=== PATIENT | male | born 1995 | race African-American/Black ===

== ENCOUNTER 2020-05-24 15:48 | Emergency (ER) | payer SELFPAY ==
--- NOTE | 2020-05-24 17:39 | ER ---
Nurse's Notes [facility] Name: Eitan Canela Age: 24 yrs Sex: Male : 1995 Arrival Date: 05/24/2020 Time: 15:50 Bed 7 Private MD: Diagnosis: Aspiration of Foreign Body - resolved Presentation: 05/24 15:50 Chief complaint: Patient states: Pt reports he was laughing while watching TV ss approximately 20 minutes ago when suddenly he felt as if something was stuck in his throat. Denies fever, cough or SOB. Coronavirus screen: Client denies travel out of the [place] in the last 14 days. Ebola Screen: Patient denies exposure to infectious person. Patient denies travel to an Ebola-affected area in the 21 days before illness onset. Initial Sepsis Screen: Does the patient meet any 2 criteria? No. Patient's initial sepsis screen is negative. Does the patient have a suspected source of infection? No. Patient's initial sepsis screen is negative. Risk Assessment: Do you want to hurt yourself or someone else? Patient reports no desire to harm self or others. Onset of symptoms was May 24, 2020. 15:50 Method Of Arrival: EMS: [facility] ss 15:50 Acuity: [place] 3 ss Historical: - Allergies: 15:53 No Known Allergies; ss - Home Meds: 15:53 None [Active]; ss - PMHx: 15:53 None; ss - PSHx: 15:53 None; ss - Immunization history:: Adult Immunizations up to date. - Social history:: Smoking status: Patient denies any tobacco usage or history of. Screenin:51 Nutritional screening: No deficits noted. ss 15:53 Abuse screen: Denies threats or abuse. Denies injuries from another. Tuberculosis ss screening: Never had TB. Fall Risk None identified. Assessment: 15:51 General: Appears in no apparent distress. comfortable, Behavior is calm, cooperative, ss Denies fever, feeling ill, fatigue, chills. Pain: Denies pain. Neuro: Level of Consciousness is awake, alert, obeys commands, Oriented to person, place, time, situation. Cardiovascular: Capillary refill < 3 seconds is brisk in bilateral fingers. Respiratory: Airway is patent Respiratory effort is even, unlabored, Respiratory pattern is regular, symmetrical, Breath sounds are clear bilaterally. Denies cough, shortness of breath labored breathing, pain with respiration, pain with cough, pain with movement. GI: Patient currently denies abdominal pain, diarrhea, nausea, vomiting. : No signs and/or symptoms were reported regarding the genitourinary system. EENT: Throat is clear slightly reddened throat. EENT: Reports sensation that something may be lodge in throat. . Derm: Skin is intact, is healthy with good turgor, Skin is dry, Skin is pink, warm \T\ dry. normal. Musculoskeletal: Circulation, motion, and sensation intact. Range of motion: intact in all extremities, Swelling absent. 17:46 Reassessment: Patient appears in no apparent distress at this time. Patient and/or ss family updated on plan of care and expected duration. Pain level reassessed. Patient is alert, oriented x 3, equal unlabored respirations, skin warm/dry/pink. Patient denies pain at this time. Patient states feeling better. Patient states symptoms have improved. Vital Signs: 15:50 BP 131 / 76; Pulse 94; Resp 15; Temp 99.1(TE); Pulse Ox 99% on R/A; Weight 70.31 kg; Height 5 ft. 11 in. (180.34 cm); Pain 0/10; 15:50 Body Mass Index 21.62 (70.31 kg, 180.34 cm) ED Course: 15:50 Patient arrived in ED. 15:52 Triage completed. 15:53 Danni Manzo, RN is Primary Nurse. 15:53 Arm band placed on right wrist. 15:53 Patient has correct armband on for positive identification. Bed in low position. Call light in reach. 16:12 Jatin Alcantara MD is Attending Physician. kdr 17:12 CXR XRAY In Process Unspecified. EDMS 17:12 Neck Soft Tissue XRAY In Process Unspecified. EDMS 17:46 Assist provider with bone marrow aspiration. Patient did not have IV access during this emergency room visit. Administered Medications: No medications were administered Outcome: 17:39 Discharge ordered by . kdr 17:46 Discharged to home ambulatory, with family. ss 17:46 Condition: good 17:46 Discharge instructions given to patient, family, Instructed on discharge instructions, follow up and referral plans. Demonstrated understanding of instructions, follow-up care. 17:47 Patient left the ED. ss Signatures: Dispatcher [employer] EDMS Jatin Alcantara MD MD kdr Smirch, Shelby, RN RN ss
--- NOTE | 2020-05-24 17:39 | EDPHYS ---
Physician Documentation [facility] Name: Eitan Canela Age: 24 yrs Sex: Male : 1995 Arrival Date: 05/24/2020 Time: 15:50 Bed 7 Private MD: ED Physician Jatin Alcantara HPI: 05/25 10:17 This 24 yrs old Black Male presents to ER via EMS with complaints of Foreign Body In kdr Throat. 10:17 The patient or guardian reports possible FB, Unknown. Onset: The symptoms/episode kdr began/occurred suddenly, just prior to arrival. Modifying factors: The symptoms are alleviated by nothing. the symptoms are aggravated by nothing. Associated signs and symptoms: The patient has no apparent associated signs or symptoms. Severity of symptoms: At their worst the symptoms were mild in the emergency department the symptoms are unchanged. The patient has not experienced similar symptoms in the past. The patient has not recently seen a physician. Historical: - Allergies: 05/24 15:53 No Known Allergies; ss - Home Meds: 15:53 None [Active]; ss - PMHx: 15:53 None; ss - PSHx: 15:53 None; ss - Immunization history:: Adult Immunizations up to date. - Social history:: Smoking status: Patient denies any tobacco usage or history of. ROS: 05/25 10:17 Constitutional: Negative for fever, chills, and weight loss, Eyes: Negative for injury, kdr pain, redness, and discharge, Cardiovascular: Negative for chest pain, palpitations, and edema, Respiratory: Negative for shortness of breath, cough, wheezing, and pleuritic chest pain, Abdomen/GI: Negative for abdominal pain, nausea, vomiting, diarrhea, and constipation, Back: Negative for injury and pain, : Negative for injury, bleeding, discharge, and swelling, MS/Extremity: Negative for injury and deformity, Skin: Negative for injury, rash, and discoloration, Neuro: Negative for headache, weakness, numbness, tingling, and seizure activity. Psych: Negative for depression, anxiety, suicide ideation, homicidal ideation, and hallucinations, Allergy/Immunology: Negative for hives, rash, and allergies, Endocrine: Negative for neck swelling, polydipsia, polyuria, polyphagia, and marked weight changes, Hematologic/Lymphatic: Negative for swollen nodes, abnormal bleeding, and unusual bruising. Neck: Positive for pain with movement, pain at rest, Negative for mass, stiffness, swelling, swollen nodes, tenderness, bony tenderness, acute changes. Exam: 10:17 Constitutional: This is a well developed, well nourished patient who is awake, alert, kdr and in no acute distress. Head/Face: Normocephalic, atraumatic. Eyes: Pupils equal round and reactive to light, extra-ocular motions intact. Lids and lashes normal. Conjunctiva and sclera are non-icteric and not injected. Cornea within normal limits. Periorbital areas with no swelling, redness, or edema. ENT: Nares patent. No nasal discharge, no septal abnormalities noted. Tympanic membranes are normal and external auditory canals are clear. Oropharynx with no redness, swelling, or masses, exudates, or evidence of obstruction, uvula midline. Mucous membranes moist. Neck: Trachea midline, no thyromegaly or masses palpated, and no cervical lymphadenopathy. Supple, full range of motion without nuchal rigidity, or vertebral point tenderness. No Meningismus. Chest/axilla: Normal chest wall appearance and motion. Nontender with no deformity. No lesions are appreciated. Cardiovascular: Regular rate and rhythm with a normal S1 and S2. No gallops, murmurs, or rubs. Normal PMI, no JVD. No pulse deficits. Respiratory: Lungs have equal breath sounds bilaterally, clear to auscultation and percussion. No rales, rhonchi or wheezes noted. No increased work of breathing, no retractions or nasal flaring. Abdomen/GI: Soft, non-tender, with normal bowel sounds. No distension or tympany. No guarding or rebound. No evidence of tenderness throughout. Neuro: Awake and alert, GCS 15, oriented to person, place, time, and situation. Cranial nerves II-XII grossly intact. Motor strength 5/5 in all extremities. Sensory grossly intact. Cerebellar exam normal. Normal gait. Psych: Awake, alert, with orientation to person, place and time. Behavior, mood, and affect are within normal limits. Vital Signs: 05/24 15:50 BP 131 / 76; Pulse 94; Resp 15; Temp 99.1(TE); Pulse Ox 99% on R/A; Weight 70.31 kg; ss Height 5 ft. 11 in. (180.34 cm); Pain 0/10; 15:50 Body Mass Index 21.62 (70.31 kg, 180.34 cm) ss MDM: 17:39 Patient medically screened. kdr 05/25 10:17 Data reviewed: vital signs, nurses notes, radiologic studies. Counseling: I had a kdr detailed discussion with the patient and/or guardian regarding: the historical points, exam findings, and any diagnostic results supporting the discharge/admit diagnosis, radiology results, the need for outpatient follow up. 05/24 16:20 Order name: CXR XRAY kdr 05/24 16:20 Order name: Neck Soft Tissue XRAY kdr Administered Medications: No medications were administered Disposition: 05/24/20 17:39 Discharged to Home. Impression: Aspiration of Foreign Body - resolved. - Condition is Stable. - Discharge Instructions: Swallowed Foreign Body, Adult, [id number]. - Medication Reconciliation Form, Thank You Letter form. - Follow up: Private Physician; When: 2 - 3 days; Reason: If symptoms return, Further diagnostic work-up, Recheck today's complaints, Continuance of care, Re-evaluation by your physician. - Problem is new. - Symptoms are resolved. - Notes: As we discussed, if this is a plastic FB, this will not be seen by plain films. You may need a CT of your neck and chest to see if there is a plastic or wodden foreign body. If you have more pain with swallowing, fever and chills, you should return to the Emergency Department Signatures: Dispatcher [employer] EDIL Jatin Alcantara MD MD kdr Danni Manzo RN RN ss Corrections: (The following items were deleted from the chart) 05/24 17:47 17:39 05/24/2020 17:39 Discharged to Home. Impression: Aspiration of Foreign Body - ss resolved. Condition is Stable. Forms are Medication Reconciliation Form, Thank You Letter, Antibiotic Education, Prescription Opioid Use. Follow up: Private Physician; When: 2 - 3 days; Reason: If symptoms return, Further diagnostic work-up, Recheck today's complaints, Continuance of care, Re-evaluation by your physician. Problem is new. Symptoms are resolved. kdr
[2020-05-24 18:21] VITALS: BP 131/76; TEMP 99.1; O2SAT 99
--- NOTE | 2020-05-25 12:07 | RAD REPORT ---
EXAM DESCRIPTION: RAD - Chest Single View - 05/24/2020 10:22 pm CLINICAL HISTORY: Possible treacheal/espohageal FB Chest pain. COMPARISON: No comparisons FINDINGS: Portable technique limits examination quality. The lungs are grossly clear. The heart is normal in size. No displaced fractures. IMPRESSION: No acute intrathoracic process suspected.
--- NOTE | 2020-05-25 12:08 | RAD REPORT ---
EXAM DESCRIPTION: RAD - Neck Soft Tissue - 05/24/2020 10:22 pm CLINICAL HISTORY: Possible foreign body to tracheal/esophagus Neck pain and swelling, dysphagia. COMPARISON: No comparisons FINDINGS: Prevertebral soft tissues are normal. Epiglottis and aryepiglottic folds are normal. Air c olumn is patent. No foreign body is seen. IMPRESSION: Negative study.
== END 2020-05-24 17:47 | disposition home or self-care (01) ==
LOC: ER 15:48
DX: T17.900A Unspecified foreign body in respiratory tract, part unspecified causing asphyxiation, initial encounter (principal)
CPT/HCPCS: 70360; 71045; 99284